=== PATIENT | female | born 1990 | race African-American/Black ===

== ENCOUNTER 2017-02-15 09:09 | Emergency (ER) | payer MEDICAID, OTHER ==
[~2017-02-15] VITALS: Ht 157.5 cm; Wt 93.0 kg
[2017-02-15 09:10] VITALS: BP 134/87; PULSE 82; RESP 20; TEMP 98.5; O2SAT 96
[2017-02-15] MEDS ORDERED: DEXAMETHASONE SOD PHOS 20 MG/5 ML VIAL IM ONE (09:30)
--- NOTE | 2017-02-15 09:31 | PD ---
HPI Chief Complaint: Allergic/Adverse Reaction Time Seen by Provider: 09:27 Travel History International Travel<30 days: No Contact w/Intl Traveler<30days: No Traveled to known affect area: No History of Present Illness HPI 26-year-old female here with allergic reaction. Patient states last night she ate lobster, shrimp and had ice cream with Snickers in it. Shortly thereafter she developed hives. She took 50 mg of Benadryl and her symptoms resolved. She went to bed and when she awoke this morning she had swelling in the superior and inferior lip. Patient denies any oropharyngeal swelling, itching, difficulty swallowing, difficulty breathing. No rash, nausea or vomiting. She took 50 mg of Benadryl this morning, but her symptoms have not resolved prompting ER visit. [facility] Past Medical History Medical History: Denies Significant Hx ?: Not Past Surgical History Section: Yes Social History Tobacco Use: No Allergies-Medications (Allergen,Severity, Reaction): Coded Allergies: Shellfish (Verified Allergy, Severe, SWELLING, 02/15/17) Citric Acid (Verified Allergy, Unknown, RASH, 02/15/17) Pineapple (Verified Allergy, Unknown, SWELLING, 02/15/17) Review of Systems Except as stated in HPI: all other systems reviewed are Neg Physical Exam Narrative GENERAL: Well-appearing female in no acute distress SKIN: Focused skin assessment warm/dry. No appreciable urticaria HEAD: Normocephalic. EYES: No scleral icterus. No injection or drainage. ENT: No nasal bleeding or discharge. Mucous membranes pink and moist. Swelling of the superior and inferior lip. There is no swelling in the oropharynx, tongue. Floor the mouth is soft. NECK: Supple without stridor CARDIOVASCULAR: Regular rate and rhythm. No murmur appreciated. RESPIRATORY: No accessory muscle use. Clear to auscultation. Breath sounds equal bilaterally. MUSCULOSKELETAL: Normal gait NEUROLOGICAL: Awake and alert. Normal speech. PSYCHIATRIC: Appropriate mood and affect; insight and judgment normal. Data Data Last Documented VS Vital Signs Date Time Temp Pulse Resp B/P Pulse Ox O2 Delivery O2 Flow Rate FiO2 02/15/17 09:10 98.5 82 20 134/87 96 Room Air Orders Dexamethasone Inj (Decadron Inj) (02/15/17 09:30) [facility] Medical Decision Making Medical Screen Exam Complete: Yes Emergency Medical Condition: Yes Medical Record Reviewed: Yes Differential Diagnosis 26-year-old female here for allergic reaction after eating shellfish and peanut containing candy yesterday evening. Differential includes allergic reaction, anaphylaxis, angioedema. Narrative Course Exam consistent with allergic reaction. Patient has already taken Benadryl. Given Decadron IM. No evidence of anaphylaxis to warrant epinephrine. Diagnosis Primary Impression: Allergic reaction Qualified Code: T78.40XA - Allergic reaction, initial encounter Referrals: Primary Care Physician as needed Additional Instructions: Continue Benadryl as needed. Med/Other Pt SpecificInfo: No Change to Meds Disposition: 01 DISCHARGE HOME Condition: Stable Risa Laura MD Feb 15, 2017 09:31
== END 2017-02-15 10:02 | disposition home or self-care (01) ==
LOC: NEPD 09:09
DX: T78.40XA Allergy, unspecified, initial encounter (principal); R22.0 Localized swelling, mass and lump, head
CPT/HCPCS: 96372; 99284; J1100